=== PATIENT | male | born 1985 | race Caucasian/White ===

== ENCOUNTER → 2023-05-29 | Outpatient (CLI) | payer OTHER | LOC: M SOG 09:24 | PROVIDERS: ATTEND Physician Assistant | DX: M47.897 Other spondylosis, lumbosacral region (principal); M54.50 Low back pain, unspecified ==

== ENCOUNTER → 2024-02-26 | Outpatient (CLI) | payer OTHER | LOC: M PLARAD 09:39 | PROVIDERS: ATTEND Physician Assistant | DX: M51.26 Other intervertebral disc displacement, lumbar region (principal) ==